=== PATIENT | female | born 1950 | race Two or more races ===

== ENCOUNTER 2022-09-30 11:34 | Emergency (ER) | payer OTHER ==
[~2022-09-30] VITALS: Ht 162.6 cm; Wt 59.0 kg
== END 2022-09-30 17:59 | disposition home or self-care (01) ==
LOC: ER 11:34
DX: J45.909 Unspecified asthma, uncomplicated (principal); Z20.822 Contact with and (suspected) exposure to COVID-19

== ENCOUNTER 2025-05-08 10:13 | Emergency (ER) | payer OTHER ==
[~2025-05-08] VITALS: Ht 162.6 cm; Wt 55.8 kg
[2025-05-08] MEDS ORDERED: GUAIFENESIN 200 MG/10 ML BLIST.PACK PO ONE (12:00)
[2025-05-08] MEDS ORDERED: IPRATROPIUM/ALBUTEROL SULFATE 3 ML AMPUL.NEB IH SCH (12:00)
[2025-05-08 12:14] LABS: BASO % 0.1 % (0.1-1.2); EOS # 0.00 (0.04-0.54); EOS % 0.0 % (0.7-7.0); LYMPH # 2.45 (1.18-3.74); LYMPH % 36.2 % (19.3-53.1); MEAN PLATELET VOLUME 10.10 fl (9.4-12.4); MONO # 0.70 (0.24-0.82); MONO % 10.4 % (4.7-12.5); NEUT # 3.57 (1.56-6.13); NEUT % 52.9 % (34.0-71.1); RED CELL DISTRIBUTION WIDTH 11.7 % (11.6-14.4)
[2025-05-08 12:24] LABS: COVID-19 AG NEGATIVE (NEGATIVE)
[2025-05-08 12:39] LABS: BUN CREA RATIO 27.0 (7.0-25.0); CREATININE SERUM 0.64 mg/dL (0.55-1.02); GFR 90.96; GLUCOSE FASTING 84.0 mg/dL (65-100); OSMOLALITY SERUM 286.0 MOSM/KG (275-295)
== END 2025-05-08 14:49 | disposition home or self-care (01) ==
LOC: ER 10:13
PROVIDERS: General Practice
DX: J45.909 Unspecified asthma, uncomplicated (principal); Z20.822 Contact with and (suspected) exposure to COVID-19